=== PATIENT | female | born 1960 | race Caucasian/White ===

== ENCOUNTER → 2018-10-11 15:42 | Outpatient (CLI) | payer BC, SELFPAY ==
--- NOTE | 2018-10-11 15:52 | XR_ITS ---
XR chest 2V HISTORY: Cough and congestion, smoker ITS.REASON: COUGH ORDERING PHYSICIAN: Sonia Sutherland PATIENT AGE: 57 years COMPARISON: 07/27/2016 FINDINGS: There are multiple old left-sided rib fractures with chronic coarsening of the bronchovascular markings. There is increased density in the right infrahilar region which has developed since the previous exam and may be due to an area of pneumonia. Perihilar mass is an additional consideration. Follow-up is recommended. Chronic changes are present in the left lower lobe. No acute bony findings. IMPRESSION: COPD with pneumonia versus mass in the right infrahilar region. Consider chest CT with contrast in this patient with smoking history.
== END ==
PROVIDERS: PCP Family Medicine; Visit Provider Nurse Practitioner Family
DX: R05 Cough (principal); R06.02 Shortness of breath; Z72.0 Tobacco use
CPT/HCPCS: 71046

== ENCOUNTER → 2018-10-23 08:05 | Outpatient (CLI) | payer BC, SELFPAY ==
[2018-10-23 08:32] LABS: Blood Urea Nitrogen 18 mg/dL (7-18); Creatinine,Serum 0.87 mg/dL (0.55-1.02); Estimated Glomerular Filt Rate 67 ml/min (>60); GFR (African American) 81 ML/MIN (>60)
--- NOTE | 2018-10-23 08:47 | CT_ITS ---
CT chest w con HISTORY: ITS.REASON: COPD, COUGH, SOB, SMOKER, abnormal chest x-ray. Possible pulmonary mass ORDERING PHYSICIAN: Flynn Prado MD PATIENT AGE: 57 years COMPARISON: None TECHNIQUE: Axial images obtained following the administration of 75 mL of Isovue 370 . Sagittal, and coronal reformatted images are also generated and reviewed. All CT scans at the facility use one or more dose reduction, viz: automated exposure control, ma/kV adjustment per patient size (including targeted exams where dose is matched to indication, i.e. head), or iterative reconstruction technique. FINDINGS: No evidence of aortic aneurysm or dissection. Coronary artery calcifications are present and there are mild atheromatous changes of the aorta. No evidence of central pulmonary embolus. Normal heart size without pericardial effusion. No mediastinal or hilar mass is evident. Atelectatic or fibrotic changes are present in the right middle lobe, right lung base, and left lung base. There is evidence of old granulomatous disease. Calcified nodes are present in the right hilum.. No suspicious pulmonary nodules are evident. No central obstructing lesions. The abnormality noted on the radiograph may have been due to an area of infiltrate or atelectasis which has resolved along with summation from overlying calcified hilar lymph nodes and mild prominence of the right hilar vessels. Upper abdominal images demonstrates at least 2 hepatic hypodense lesions one in the medial segment of left hepatic lobe 12 mm and one in the lateral segment left hepatic lobe at 15 mm possibly related to hepatic cysts. There is some mild thickening of the distal esophagus nonspecific. Mild degenerative changes are present in the thoracic spine IMPRESSION: 1. No suspicious pulmonary nodules evident. The abnormality noted on the radiograph is likely due to an area of atelectasis or infiltrate which has resolved along with summation density from overlying hilar lymph nodes and pulmonary artery. 2. Atelectatic or fibrotic changes in the lung bases. 3. There are 2 Isodense liver lesions nonspecific possibly due to cysts which could be confirmed with ultrasound if clinically warranted
== END ==
PROVIDERS: PCP Family Medicine; Visit Provider Family Medicine
DX: R06.02 Shortness of breath (principal); R05 Cough; J18.9 Pneumonia, unspecified organism; J44.9 Chronic obstructive pulmonary disease, unspecified; F17.210 Nicotine dependence, cigarettes, uncomplicated
CPT/HCPCS: 36415; 71260; 82565; 84520; Q9967

== ENCOUNTER 2022-05-26 15:17 | Emergency (ER) | payer BC, SELFPAY ==
[2022-05-26 15:40] VITALS: BP 146/87; PULSE 78; RESP 20; TEMP 37.1; O2SAT 97; BMI 30.2
[2022-05-26 15:46] LABS: Apearance,Urine Clear (Clear); Bilirubin,Urine Negative (Negative); Blood, Urine Trace (Negative); Color,Urine Yellow (Yellow); Glucose,Urine (UA) Negative (Negative); Ketones,Urine Negative (Negative); PH,Urine 5.5 (5.0-8.5); Protein,Urine Negative (Negative); UTC Leukocyte Esterase,Urine Negative (Negative); UTC Nitrate,Urine Negative (Negative); Urobilinogen,Urine 0.2 EU/dl (0.2)
--- NOTE | 2022-05-26 15:55 | HMH.EDUTC ---
[facility] [place] Disposition Clinical Impression: Low back pain Qualifiers: Chronicity: unspecified Back pain laterality: left Sciatica presence: without sciatica Qualified Code(s): M54.50 - Low back pain, unspecified Disposition: Home, Self-Care Condition on Discharge: Good Instructions: Low Back Pain, DI for Low Back Pain, Methocarbamol, Cefdinir Additional Instructions: *Monitor Temp, Over the counter Motrin or Tylenol as directed/as needed Tylenol every 4 hours and Motrin every 6 hours (as long as your family doctor has told you that you can take it) for fever or pain. and straight to ER if unable to lower temp less than 101.0 after medication given Warm compresses on back may help with pain and discomfort Return immediately if pain returns or worsens *Humidifier/Vaporizer *Not additional anti-inflammatory like motrin, aleve, advil with the above amount of ibuprofen. You can still take Tylenol every 4 hours as needed if you need something else for pain *Ice 20 minutes every 2 hours for the first 48 hours after the initial injury followed by moist heat every 20 minutes 3-4 times a day to affected area *Muscle relaxer every 12 hours as needed for muscle spasms but remember, it WILL cause drowsiness You cannot take it and drive, operate machinery or care for small children. *Keep this area active, no movement leads to more stiffness, However take it easy and avoid heavy lifting pushing or pulling *Follow up with you family doctor if no improvement for further treatment Follow up IMMEDIATELY for new or worsening symptoms or no Noticeable improvement over the next 48-72 hours. 911 for difficulty breathing or swallowing You were tested for today for COVID19 your test result should be back in the next 24-48 hours, you may check your result on the [facility] My Health Portal Make sure to take your Vitamins Vit. C Vit D and Zinc if you can take them *Increase fluids. Water not Soda or Tea *Start antibiotic immediately and be sure to take as ordered for the FULL length of time although you should start to see improvement over the next 48 hours *Be SURE to follow up anytime for new or worsening symptoms with your family doctor. AND in 48 hours for urine culture results with your family doctor, if you do not have a doctor then you may call back to the [facility] for urine culture results and further treatment. We do recommend that you choose and establish care with a Primary Care Physician. AND follow up with them in 10-14 days to repeat UA to ensure infection is resolved and blood no longer present *Be sure to let your PCP know that we sent urine cultures from the [facility] so they can follow up to ensure that you area the on the correct antibiotic Call your doctor office and make appointment for 48 hours (2 days from today) to follow up and get the results of your urine culture and further treatment Prescriptions: methocarbamoL [Methocarbamol 500mg Tablet] 500 mg PO BID PRN #20 tab PRN Reason: Muscle Spasm Transmission Status: Received by [facility] #[id number] Cefdinir [Omnicef 300mg Capsule] 300 mg PO BID #20 cap Transmission Status: Received by [facility] #[id number] Referrals: Flynn Prado MD [Primary Care Provider] - As needed Forms: Work/School Release Time of Disposition: 16:10 Medical Decision Making - Jf Inquiry Pt receiving controlled substance: No Jf was queried for this patient: No Vital Signs: 05/26/22 15:40 05/26/22 16:15 Temperature 98.8 F 98.8 F Temperature Source Oral Pulse Rate 78 Pulse Rate [Right Brachial] 78 Respiratory Rate 20 20 Blood Pressure 146/87 H Blood Pressure [Right Arm] 146/87 H Blood Pressure Mean [Right Arm] 106 Blood Pressure Source [Right Arm] Automatic Cuff Blood Pressure Position [Right Arm] Sitting 02 Sat by Pulse Oximetry 97 Oxygen Delivery Method Room Air - Lab Data Lab Results 05/26/22 15:45: Urine Color Yellow, Urine Appearance Clear, Urine pH 5.5, Ur Specific Gra
[2022-05-26 16:15] VITALS: BP 146/87; PULSE 78; RESP 20; TEMP 37.1; O2SAT 97
== END 2022-05-26 16:21 | disposition home or self-care (01) ==
PROVIDERS: Emergency Provider Nurse Practitioner; PCP Family Medicine
DX: M54.50 Low back pain, unspecified (principal); R10.9 Unspecified abdominal pain; R50.9 Fever, unspecified; R09.89 Other specified symptoms and signs involving the circulatory and respiratory systems; U07.1 COVID-19
CPT/HCPCS: 81003; 87086; 99212; C9803; G0463; U0003; U0005

== ENCOUNTER → 2022-07-13 10:48 | Outpatient (CLI) | payer BC, SELFPAY ==
--- NOTE | 2022-07-13 10:54 | MM_ITS ---
PROCEDURE INFORMATION: Exam: MG Bilateral Screening 3D Mammography Exam date and time: 07/13/2022 10:49 AM Age: 61 years old Clinical indication: Screening examination . Family history of breast carcinoma. TECHNIQUE: Imaging protocol: Bilateral Screening tomosynthesis and 2D mammography including computer-aided detection (CAD) when performed. COMPARISON: 1. MG SBWCR STEROTATIC BX W/CLIP-RT 09/01/2016 10:11 AM 2. MG DMDXUAVR DIG MAMM-DX UNI ADD VIEWS-RT 04/19/2016 2:29 PM 3. MG DMSB DIG MAMM-SCREEN PREETI 03/30/2016 4:37 PM FINDINGS: MAMMOGRAPHY: Breast composition: The breasts are heterogeneously dense, which may obscure small masses. Mass: No suspicious masses. Architectural distortion: No suspicious distortion. Calcifications: No suspicious calcifications. Asymmetric density: None. Skin thickening: None. Axillary adenopathy: None. IMPRESSION: No mammographic evidence of malignancy. Annual screening is recommended unless otherwise clinically indicated. ASSESSMENT: BI-RADS Category 1: Negative
== END ==
PROVIDERS: PCP Family Medicine; Visit Provider Family Medicine
DX: Z12.31 Encounter for screening mammogram for malignant neoplasm of breast (principal)
CPT/HCPCS: 77063; 77067

== ENCOUNTER 2025-04-26 10:57 | Outpatient (CLI) | payer BC, SELFPAY ==
--- NOTE | 2025-04-26 10:59 | MM_ITS ---
PROCEDURE INFORMATION: Exam: MG Bilateral Screening 3D Mammography Exam date and time: 04/26/2025 11:05 AM Age: 64 years old Clinical indication: Screening examination. Her maternal grandmother had breast cancer at age 80. TECHNIQUE: Imaging protocol: Bilateral Screening tomosynthesis and 2D mammography including computer-aided detection (CAD) when performed. COMPARISON: 1. MG MM DIG SCREENING MAMM BI W/CAD 07/13/2022 10:49 AM 2. MG SBWCR STEROTATIC BX W/CLIP-RT 09/01/2016 10:11 AM 3. MG DMDXUAVR DIG MAMM-DX UNI ADD VIEWS-RT 04/19/2016 2:29 PM 4. MG DMSB DIG MAMM-SCREEN PREETI 03/30/2016 4:37 PM FINDINGS: MAMMOGRAPHY: Breast composition: The breasts are heterogeneously dense, which may obscure small masses. Mass: None. Architectural distortion: None. Calcifications: No suspicious calcifications. Asymmetric density: No developing asymmetry. Skin thickening: None. Axillary adenopathy: None. IMPRESSION: No mammographic evidence of malignancy. Annual screening is recommended unless otherwise clinically indicated. ASSESSMENT: BI-RADS Category 1: Negative.
== END 2025-04-26 23:59 | disposition home or self-care (01) ==
LOC: RAD 10:57
PROVIDERS: PCP Family Medicine; Visit Provider Family Medicine
DX: Z12.31 Encounter for screening mammogram for malignant neoplasm of breast (principal); R92.333 Mammographic heterogeneous density, bilateral breasts; Z80.3 Family history of malignant neoplasm of breast
CPT/HCPCS: 77063; 77067